=== PATIENT | female | born 1985 | race Caucasian/White ===

== ENCOUNTER 2016-06-08 06:45 | Day surgery (SDC) | payer OTHER ==
[2016-06-07 11:55] LABS: BASOPHILS 0.7 % (0.0-2.0); EOSINOPHILS 2.8 % (0-7); HEMATOCRIT 41.2 % (36.0-48.0); HEMOGLOBIN 13.5 g/dL (12-16); IMMATURE GRANULOCYTES 0.1 % (0-5); LYMPHOCYTES 32.7 % (15-50); MCH 29.5 pg (26.0-34.0); MCHC 32.8 g/dL (31.0-37.0); MCV 90.2 fL (80.0-100.0); MEAN PLATELET VOLUME 11.7 fL (7.4-10.4); MONOCYTES 7.1 % (2-11); NEUTROPHILS 56.6 % (40-80); PLATELET COUNT 245 10x3/uL (130-400); RBC 4.57 10x6/uL (4.00-5.40); RDW 13.5 % (11.5-14.5); WBC 7.6 10x3/uL (4.8-10.8)
[2016-06-07 12:14] LABS: CALC OSMOLALITY 285 mosm/kg (275-300); CALCIUM 9.3 mg/dL (8.5-10.1); CARBON DIOXIDE 29.3 mmol/L (21.0-32.0); CHLORIDE - SERUM 106 mmol/L (98-107); CREATININE - SERUM 0.8 mg/dL (0.6-1.3); GLUCOSE 90 mg/dL (74-106); POTASSIUM - SERUM 3.9 mmol/L (3.5-5.1); SODIUM 143 mmol/L (136-145); UREA NITROGEN 16 mg/dL (7-18); eGFR NON AFRICAN AMERICAN 90 mL/min (90-120)
[~2016-06-08] VITALS: Ht 162.6 cm; Wt 108.9 kg
[~2016-06-08 06:45] MED LIST: BACLOFEN10 MG PO; ULTRAM50 MG PO
[2016-06-08 09:49] VITALS: BP 107/61; Ht 162.6 cm; Wt 108.9 kg
[2016-06-08] MEDS ORDERED: DILAUDID2 MG PO (13:59)
--- NOTE | 2016-06-08 15:11 | NUR ---
1435 BACK FROM LAPAROSCOPIC CHOLECYSTECTOMY. SOME DROWSY RESP EVEN AND NONLABORED. 4 BANDAIDS TO ABDOMEN C/D/I NO BLEEDING. SOME NAUSEA CALLED FOR ZOFRAN AND FEW ICE CHIPS SERVED.
--- NOTE | 2016-06-08 15:24 | NUR ---
1450 MEDICATED WITH ZOFRAN FOR NAUSEA ICE PACK TO ABDOMEN AREA 4 BANDAIDS C/D/I NO BLEEDING.
--- NOTE | 2016-06-08 17:59 | NUR ---
1535 V/S TAKEN STILL VERY SLEEPY.
--- NOTE | 2016-06-08 18:01 | NUR ---
[address]5 PATIENT STATED DO YOU THINK DR. LOUIS WOULD GIVE ANYTHING FOR MY NERVES. TALKED WITH DR. LOUIS PATIENT REQUESTING VALIUM HE STATED NO.
--- NOTE | 2016-06-08 18:02 | NUR ---
1635 MEDICATED FOR PAIN WITH DAULADID. ORDER RECEIVED FROM DR. LOUIS REPORTED HER HAVING GAS AND ABDOMINAL CRAMPING. ENCOURAGED TO WALK AND EXPLAINED HAS GAS THAT WAS FROM THE SURGERY AND WILL GO OUT IN THE SKIN.
--- NOTE | 2016-06-08 18:04 | NUR ---
1715 PAIN BETTER A 3,MUCH CALMER AFTER MEDICATED. NAUSEA GONE. PATIENT READY TO BE DISCHARGED. IV DCD CTAHETER INTACT. DISCHARGE INSTRUCTIONS GONE OVER AND VERBALLY UNDERSTANDS.PAIN MED SCRIPT GIVEN AND WENT OVER LAP INSTRUCTIONS. VERBALLY UNDESRATNDS.
--- NOTE | 2016-06-08 18:04 | NUR ---
1645 WALKING AROUND IN THE NGO AND IN ROOM.
--- NOTE | 2016-06-08 18:06 | NUR ---
1730 TO HOME VIA W/C WITH SPOUSE,BANDAIDS X 4 C/D/I AND HAS ICE PACK.
--- NOTE | 2016-06-13 13:46 | OP ---
PATIENT NAME: EVERARDO GIORDANO MEDICAL RECORD: [id number] :87 LOCATION:D.OPS ADMISSION DATE: SURGEON: ERNST LOUIS MD DATE OF OPERATION: 06/08/2016 PREOPERATIVE DIAGNOSES: 1. Biliary dyskinesia. 2. Anxiety. POSTOPERATIVE DIAGNOSES: 1. Biliary dyskinesia. 2. Anxiety. PROCEDURE: Laparoscopic cholecystectomy. SURGEON: Ernst Louis MD REPORT OF PROCEDURE: The patient's abdomen was prepped and draped in sterile fashion. A cutdown was made on the superior aspect of the umbilicus, 0 Vicryls were placed in the fascia bilaterally and the fascia was incised with 15 blade. I then bluntly entered the peritoneal cavity and placed a 12-mm Danielle port. Under direct visualization, a 5 mm trocar was placed in the epigastrium and 2 more 5-mm trocars were placed in the right subcostal region. The gallbladder was grasped and elevated. It was long, but had no sign of any inflammatory changes. The cystic artery and duct were dissected free and these were clipped proximally and distally and ligated in standard fashion. The gallbladder was then taken off the liver bed using electrocautery and placed into the right upper quadrant. Any bleeding from the liver bed was then treated with electrocautery. We irrigated out the right upper quadrant and assured there was no sign of any further bleeding or bile leakage. At this point, the ports and insufflation were then removed and the gallbladder was taken out through the umbilicus. The umbilical fascia was closed with interrupted 0 Vicryls times 3. Wounds were irrigated out with normal saline and infused with 10 mL of 0.25% Marcaine with epinephrine. The skin incisions were all closed with subcutaneous 5-0 Monocryl and dressed appropriately. COMPLICATIONS: None. CONDITION: Stable. ANESTHESIA: General endotracheal and local. BLOOD LOSS: Minimal. TRANSINT:[id number] Voice Confirmation ID: [id number] DOCUMENT ID: [id number] ERNST LOUIS MD at 1346 CC: FABI MAJOR MD [id number] DICTATION DATE: 06/08/16 [address] MAKER: 06/08/16 1432 [facility] 06/08/16 [place] [address]
== END 2016-06-08 17:30 | disposition home or self-care (01) ==
LOC: D.OPS 06:45 → D.PAN 10:00 → D.OPS 10:15 → D.PAN 10:15 → D.OPS 10:45
PROVIDERS: Surgery
DX: K82.8 Other specified diseases of gallbladder (principal); F41.9 Anxiety disorder, unspecified; F17.200 Nicotine dependence, unspecified, uncomplicated; K21.9 Gastro-esophageal reflux disease without esophagitis; M19.90 Unspecified osteoarthritis, unspecified site

== ENCOUNTER 2016-08-14 14:55 | Emergency (ER) | payer OTHER ==
[2016-06-08 09:49] VITALS: BMI 41.3
[~2016-08-14 14:55] MED LIST changes: +DILAUDID2 MG PO
== END 2016-08-14 20:40 | disposition home or self-care (01) ==
LOC: D.ER 14:55
DX: S39.012A Strain of muscle, fascia and tendon of lower back, initial encounter (principal); W19.XXXA Unspecified fall, initial encounter; Y93.89 Activity, other specified; Y92.019 Unspecified place in single-family (private) house as the place of occurrence of the external cause; F17.200 Nicotine dependence, unspecified, uncomplicated

== ENCOUNTER → 2018-01-04 09:54 | Outpatient (CLI) | payer OTHER ==
[2016-06-08 09:49] VITALS: BMI 41.3
== END | disposition home or self-care (01) ==
LOC: D.RAD 09:54
DX: M25.552 Pain in left hip (principal)